=== PATIENT | female | born 2000 | race Caucasian/White ===

== ENCOUNTER 2025-04-08 21:45 | Emergency (ER) | payer SELFPAY ==
[2025-04-08 21:47] VITALS: BP 127/84
--- NOTE | 2025-04-08 23:09 | ED.GENMED ---
History of Present Illness
General
Chief Complaint: Esophageal Problem
Source: patient
Time Seen by Provider: 04/08/25 22:51
History of Present Illness
History of Present Illness:
Note:
CHIEF COMPLAINT(S)
Difficulty swallowing after ingesting cheesecake.
HISTORY OF PRESENT ILLNESS
The patient is a 24-year-old female with a history of Sjogrens syndrome and gastroesophageal reflux who presented to the emergency department with complaints of difficulty swallowing. She was out dining with friends, consuming cheesecake when she
began laughing and felt the cheesecake got lodged in her esophagus, causing her discomfort and an inability to swallow effectively. The sensation was distressing to her, likened to a 'scary feeling' as if she was unable to breathe, though breathing
was not hindered. The patient reported she typically manages similar incidents at home by drinking soda to dislodge the food, although this time it was ineffective. She also mentioned an upcoming procedure on Sunday for her Sjogrens syndrome
involving a biopsy. She noted she experiences dryness related to her condition, contributing to her swallowing difficulties. The patient was advised to take small bites, chew thoroughly, and drink water with meals to prevent future occurrences. She
was comforted with information that such food obstructions, particularly with soft foods like cake, often resolve with time if not completely obstructive.
PAST MEDICAL AND SURGICAL HISTORY
- Sjogrens syndrome
- Gastroesophageal reflux disease
- Previous endoscopy years ago.
MEDICATIONS
- Taking Sertraline daily.
SOCIAL HISTORY
- Does not smoke.
PHYSICAL EXAM
General: Alert, no acute distress.
Skin: Warm, dry.
Head: Normocephalic, atraumatic.
Neck: Supple, trachea midline.
Eye, Ears, Nose, Mouth and Throat: Oral mucosa moist, visual inspection reveals no obvious obstruction. no drooling
Cardiovascular: Regular rhythm without murmur.
Respiratory: Non-labored breathing.
Gastrointestinal: Abdomen nondistended.
Back: Normal range of motion, normal alignment.
Musculoskeletal: Normal range of motion, normal strength.
Neurological: Alert and oriented to person, place, time, and situation, no focal neurological deficits observed.
Psychiatric: Cooperative, appropriate mood & affect.
PROBLEM LIST
Acute:
- Dysphagia secondary to esophageal food bolus.
Chronic:
- Sjogrens syndrome
- Gastroesophageal reflux disease
PLAN
- Advise the patient to keep meals light and avoid large chunks of food in the coming days.
- Recommend sipping water with each bite to aid swallowing.
- Reassurance provided; advised to monitor symptoms.
- Will follow up post-procedure for further evaluation.
DIFFERENTIAL DIAGNOSIS
The Differential Diagnosis includes, in no particular order and is not limited to:
1. Esophageal food bolus
2. Esophageal spasm
3. Esophagitis
4. Esophageal stricture
5. Schatzki ring
6. Achalasia
7. Diffuse esophageal spasm
8. Esophageal motility disorder
9. Hypertensive lower esophageal sphincter
10. Foreign body ingestion
Disposition:
SUMMARY OF ENCOUNTER
The patient, a 24-year-old female with a known history of Sjogrens syndrome and gastroesophageal reflux disease, presented to the emergency department after experiencing difficulty swallowing following the ingestion of cheesecake. The patient had
the sensation of the cheesecake lodging in her esophagus, causing discomfort and a transient inability to swallow effectively. Symptoms resolved upon presentation, with no evidence of esophageal obstruction upon examination. The patient was advised
to take smaller bites of food, chew thoroughly, and drink fluids with each bite to aid swallowing and prevent future episodes.
ASSESSMENT
The acute dysphagia was attributed to an esophageal food bolus which has since resolved. Chronic conditions including Sjogrens syndrome and gastroesophageal reflux disease may contribute to recurrent swallowing difficulties.
PLAN
Advise the patient to continue taking small bites and chewing thoroughly to prevent future occurrences. Encourage drinking water with each bite to aid in swallowing. The patient should monitor symptoms, and follow up after her upcoming procedure
related to Sjogrens syndrome for further evaluation.
PATIENT EDUCATION AND COUNSELING
The patient was reassured that non-obstructive food bolus episodes, especially with soft foods, typically resolve. Education was provided on methods to prevent recurrence, including taking smaller bites, thorough chewing, and accompanying food with
fluids.
MEDICAL DECISION MAKING
- Number and Complexity of Problems Addressed: Chronic conditions affecting care, namely Sjogrens syndrome and gastroesophageal reflux disease. Differential diagnosis includes esophageal food bolus, esophageal spasm, esophagitis, esophageal
stricture, Schatzki ring, achalasia, diffuse esophageal spasm, esophageal motility disorder, hypertensive lower esophageal sphincter, and foreign body ingestion.
DIAGNOSIS
Dysphagia, unspecified (R13.10).
Phy Exam
Physical Exam
Physical Exam:
.
Course
Vital Signs
Initial and Last Documented VS:
Initial Vital Signs
Temp Pulse Resp BP Pulse Ox
98.2 F 90 20 127/84 99
04/08/25 21:47 04/08/25 21:47 04/08/25 21:47 04/08/25 21:47 04/08/25 21:47
Last Documented Vital Signs
Temp Pulse Resp BP Pulse Ox
98.2 F 90 18 125/75 100
04/08/25 21:47 04/08/25 21:47 04/08/25 22:00 04/08/25 23:19 04/08/25 23:15
*Pulse Oximetry
SaO2: 100
Oxygen Mode of Delivery: Room air
Patient hypoxic: no
*Critical Care Note
Total Time (30-74mins, 75-104mins- exclusive of procedures): Not Applicable
ED Attending Note
-
Portions of this chart may have been created with voice recognition software.� Occasional wrong word or��sound alike� substitutions may have occurred due to the inherent limitations of voice recognition software.
Discharge Plan
Departure
Patient Disposition: Home (Routine Discharge)
Date of Disposition: 04/08/25
Time of Disposition: 23:09
Patient with high blood pressure during this ER visit?: No
Discharge Problem:
esophageal food bolus
Instructions: Food impaction - ED (DC)
Prescriptions:
No Action
ondansetron 4 mg tablet,disintegrating
4 mg PO TIDPRN PRN (Reason: nausea/vomiting) Qty: 10 0RF
omeprazole 20 mg tablet,delayed release (DR/EC)
20 mg PO DAILY Qty: 14 0RF
Referrals:
Marychuy Dominguez DO [Family Provider, Family Practice]
Activity Restrictions/Additional Instructions:
Please drink plenty of water and take small bites when eating. Please follow-up with your doctor in the next 1 to 2 weeks. An endoscopy may be necessary if this recurs. Return immediately for or any other concerns.
Interventions
Interventions:
*Risk Screen - Suicide Last Done: 04/08/25 23:20
*General Assessment Last Done: 04/08/25 21:47
*Neglect/Abuse Screening Last Done: 04/08/25 23:20
*ED- Fall Risk Assessment Last Done: 04/08/25 23:20
*ED COVID-19 Vaccine History Last Done: 04/08/25 23:20
*ED Influenza Vaccine History Last Done: 04/08/25 23:20
*Nursing Disposition Last Done: 04/08/25 23:20
NL-Nackvi-Zwxldkeati Assessment Last Done: 04/08/25 22:08
ED-EENT Assessment Last Done: 04/08/25 22:08
Discharge Date and Time
Discharge Date/Time: 04/08/25 23:20
Print Language: ITALIAN
[2025-04-08 23:19] VITALS: BP 125/75
== END 2025-04-08 23:20 | disposition home or self-care (01) ==
LOC: EMR 21:45
PROVIDERS: EMERGENCY PHYSICIAN Emergency Medicine; FAMILY PHYSICIAN Family Medicine
DX: T18.128A Food in esophagus causing other injury, initial encounter (principal); W44.F3XA Food entering into or through a natural orifice, initial encounter; M35.00 Sjogren syndrome, unspecified; K21.9 Gastro-esophageal reflux disease without esophagitis
CPT/HCPCS: 99282